=== PATIENT | male | born 1995 | race Caucasian/White ===

== ENCOUNTER 2020-09-18 15:19 | Emergency (ER) | payer OTHER ==
[~2020-09-18] VITALS: Ht 182.8 cm; Wt 70.3 kg
== END 2020-09-18 19:08 | disposition left against medical advice (07) ==
LOC: ED 15:19
DX: R42 Dizziness and giddiness (principal); R06.02 Shortness of breath; J45.909 Unspecified asthma, uncomplicated; Z53.21 Procedure and treatment not carried out due to patient leaving prior to being seen by health care provider